=== PATIENT | female | born 1975 | race African-American/Black ===

== ENCOUNTER 2017-09-24 18:17 | Emergency (ER) | payer OTHER ==
[2013-11-23 09:50] VITALS: BMI 25.5
[~2017-09-24 18:17] MED LIST: BACTRIM DS TABL1 TAB PO; COUMADIN5 MG PO; DILAUDID8 MG PO; NORCO 10/325 TA1 TA1 PO
== END 2017-09-24 21:02 | disposition home or self-care (01) ==
LOC: D.ER 18:17
DX: R06.00 Dyspnea, unspecified (principal); J44.1 Chronic obstructive pulmonary disease with (acute) exacerbation; F17.200 Nicotine dependence, unspecified, uncomplicated